=== PATIENT | male | born 1950 | race African-American/Black ===

== ENCOUNTER 2019-02-07 11:16 | Observation (INO) ==
[2019-02-07 12:08] LABS: Eosinophils # 0.1 10*3/uL (0.0-0.87); Eosinophils % 1.8 % (0.00-10.9); Hematocrit 38.3 VOL% (42.0-52.0); Hemoglobin 13.2 GM/DL (14.0-18.0); Immature Granulocytes % 0.3 %; Immature Granulocytes Absolute 0.01 #; Lymphocytes % 31.4 % (21.2-54.2); Mean Corpuscular HGB Conc 34.5 GM/DL (32-36); Mean Corpuscular Volume 94.3 FL (87-102); Mean Platelet Volume 10.4 FL (9.6-12.0); Neutrophils % 56.5 % (38.7-73.9); Platelet Count 149 T/CUMM (130-400); Red Blood Count 4.06 MC/CUMM (3.8-5.5); Red Cell Distribution Width 13.4 % (9.3-17.3); White Blood Count 3.3 T/CUMM (4-12)
[2019-02-07 12:22] LABS: PT Patient Result 10.9 SECS (9.6-12.2); Partial Thromboplastin Time 26.5 SECS (20.8-36.0)
[2019-02-07 12:23] LABS: Albumin 3.6 G/DL (3.4-5.0); Bilirubin,Total 0.7 MG/DL (0.2-1.0); Osmolality,Calculated 292.8 MOS/KG (273-304); Total Protein 7.9 G/DL (6.4-8.3)
[2019-02-07] MEDS ORDERED: LABETALOL 20 MG/4 ML SYRINGE IV PRN (14:57)
[2019-02-07] MEDS ORDERED: GLUCAGON 1 MG VIAL IM PRN ×2 (14:59→17:32)
[2019-02-07] MEDS ORDERED: DEXTROSE 50% 25 GM/50 ML VIAL IV PRN ×2 (14:59→17:32)
[2019-02-07 15:03] LABS: Risk Ratio 3.41; Thyroid Stimulating Hormone 2.24 uIU/ml (0.358-3.74); VLDL CHOLESTEROL 32.8 MG/DL
[2019-02-07] MEDS: INSULIN LISPRO 100 UNIT/ML SUBCUT SCH ×2 (17:12→22:32)
[2019-02-07] MEDS: SIMVASTATIN 40 MG TABLET PO SCH (20:58)
[2019-02-07] MEDS ORDERED: SIMVASTATIN 20 MG TABLET PO SCH (21:00)
[2019-02-07 22:20] LABS: Apearance,Urine CLEAR (Clear); Bilirubin,Urine Negative (Negative); Blood, Urine Negative (Negative); Glucose,Urine (UA) Negative (Negative); Ketones,Urine Negative (Negative); Nitrite,Urine Negative (Negative); Protein,Urine Negative; Urine Color Straw (Yellow); Urine Specific Gravity 1.011 (1.001-1.035); Urine Urobilinogen < 2.0 EU/DL (0.2-1.0)
[2019-02-08 04:58] LABS: Eosinophils # 0.1 10*3/uL (0.0-0.87); Eosinophils % 2.2 % (0.00-10.9); Hematocrit 36.5 VOL% (42.0-52.0); Hemoglobin 12.7 GM/DL (14.0-18.0); Immature Granulocytes % 0.3 %; Immature Granulocytes Absolute 0.01 #; Lymphocytes # 1.5 10*3/uL (1.4-4.0); Lymphocytes % 40.1 % (21.2-54.2); Mean Corpuscular HGB Conc 34.8 GM/DL (32-36); Mean Corpuscular Volume 93.1 FL (87-102); Mean Platelet Volume 10.6 FL (9.6-12.0); Monocytes % 11.8 % (1.7-12.7); Neutrophils % 45.6 % (38.7-73.9); Platelet Count 153 T/CUMM (130-400); Red Blood Count 3.92 MC/CUMM (3.8-5.5); Red Cell Distribution Width 13.3 % (9.3-17.3); White Blood Count 3.7 T/CUMM (4-12)
[2019-02-08 05:34] LABS: Calcium 8.8 MG/DL (8.5-10.1)
[2019-02-08] MEDS: INSULIN LISPRO 100 UNIT/ML SUBCUT SCH ×4 (07:49→22:20)
[2019-02-08] MEDS: ENOXAPARIN 40 MG/0.4 ML SYRINGE SUBCUT SCH (09:09)
[2019-02-08] MEDS: CLOPIDOGREL 75 MG TABLET PO SCH (09:09)
[2019-02-08] MEDS ORDERED: carvediloL 25 MG TABLET PO SCH (10:00)
[2019-02-08] MEDS ORDERED: amLODIPine 10 MG TABLET PO ONE (12:29)
[2019-02-08] MEDS: SIMVASTATIN 40 MG TABLET PO SCH (20:30)
[2019-02-08] MEDS: glipiZIDE 10 MG TABLET PO SCH (20:30)
[2019-02-08] MEDS: carvediloL 6.25 MG TABLET PO SCH (20:31)
[2019-02-08] MEDS ORDERED: INSULIN GLARGINE 100 UNIT/ML SUBCUT SCH (21:00)
[2019-02-08] MEDS ORDERED: amLODIPine 10 MG TABLET PO SCH (21:00)
[2019-02-09] MEDS ORDERED: SILODOSIN 8 MG CAPSULE PO SCH (09:00)
[2019-02-09] MEDS: INSULIN LISPRO 100 UNIT/ML SUBCUT SCH (09:25)
[2019-02-09] MEDS: CLOPIDOGREL 75 MG TABLET PO SCH (09:27)
[2019-02-09] MEDS: ENOXAPARIN 40 MG/0.4 ML SYRINGE SUBCUT SCH (09:27)
[2019-02-09] MEDS: glipiZIDE 10 MG TABLET PO SCH (09:27)
[2019-02-09] MEDS: carvediloL 6.25 MG TABLET PO SCH (09:28)
[2019-02-09 11:48] VITALS: BP 142/102
[2019-02-09] MEDS ORDERED: amLODIPine 10 MG TABLET PO SCH (21:00)
== END 2019-02-09 12:10 | disposition swing bed (61) ==
LOC: N.EDINP 11:16 → N.ED 11:16 → SUATTDRO 14:01 → N.EDINP 15:24 → N.4E 15:56
PROVIDERS: ADMIT Internal Medicine Geriatric Medicine; ATTEND Internal Medicine